=== PATIENT | female | born 1990 | race Two or more races ===

== ENCOUNTER 2024-11-20 08:09 | Day surgery (SDC) | payer BC, SELFPAY ==
[2024-11-20] VITALS (9 sets, daily range): BP systolic 93–131; BP diastolic 56–88; PULSE 63–91; RESP 12–18; TEMP 36.2–37.3; O2SAT 98–100; BMI 30.2
--- NOTE | 2024-11-20 08:24 | XR_ITS ---
Examination: OB Transvaginal ultrasound of the pelvis, complete Technique: Transvaginal sonographic images pelvis performed using wayne scale imaging Exam date and time: November 20, 2024 0835 hours INDICATIONS: Pelvic pain beginning 3 weeks ago FINDINGS: Uterus 10.3 cm, pole 0.3 cm correspondences 6 weeks 0 day gestational age No cardiac motion Right ovary 2.3 cm arterial flow 13 mm follicular cyst Left ovary 1.7 cm arterial flow IMPRESSION: Intrauterine gestation corresponding to 6 week 0 day gestational age No heart tones Recommend continued short-term follow-up to exclude demise.
--- NOTE | 2024-11-20 09:50 | EDNOTE_ITS ---
ED OB Contraction Preg RMI/HPI General Chief complaint: OB/Uterine Contractions Stated complaint: POSS MISCARRIAGE; SENT BY PCP Time Seen by Provider: 11/20/24 08:22 Arrival date/time: 11/20/24 08:09 34-year-old female presents to the Emergency Department for complaints of back pain concern for miscarriage patient reports being G3 A2. Patient reports no fever nausea or vomiting but does report pelvic pain and back pain. Patient more she was in the clinic yesterday and was instructed to come to the ER for f urther evaluation Limitations: no limitations Related Data Allergies Allergy/AdvReac Type Severity Reaction Status Date / Time No Known Allergies Allergy Verified 11/20/24 08:12 Review of Systems Review of Systems Systems Reviewed: All systems reviewed, normal except as documented Constitutional Constitutional: Reports system reviewed and no additional complaints, except as documented, Denies fever(s) and Denies headache(s) Eyes Eyes: Reports system reviewed and no additional complaints, except as documented and Denies blurry vision ENT Ears, Nose, Mouth, and Throat: Reports system reviewed and no additional complaints, except as documented, Denies headache(s), Denies nasal congestion and Denies nasal discharge Cardiovascular Cardiovascular: Reports system reviewed and no additional complaints, except as documented, Denies chest pain and Denies dyspnea Respiratory Respiratory: Reports system reviewed and no additional complaints, except as documented, Denies chest congestion, Denies cough and Denies dyspnea Gastrointestinal Gastrointestinal: Reports system reviewed and no additional complaints, except as documented and Denies abdominal pain Genitourinary Genitourinary: Reports system reviewed and no additional complaints, except as documented, Denies abnormal vaginal bleeding and Reports pelvic pain Integumentary/Breasts Skin/Breast: Reports system reviewed and no additional complaints, except as documented and Denies rash Neurologic Neurologic: Reports system reviewed and no additional complaints, except as documented, Reports as per HPI and Denies headache(s) Past Medical History Past Medical History NEUROLOGIC: Negative Seizures CARDIAC: Negative Congestive Heart Failure RESPIRATORY: Negative Chronic Obstructive Pulmonary Disease (COPD) GENITOURINARY: Negative Renal Disease ENDOCRINE: Negative Diabetes Mellitus Type 1 or Diabetes Mellitus Type 2 OTHER HISTORY: Negative Blood Transfusions or Anesthesia Reactions Social History SMOKING STATUS: Never smoker ED Exam General Limitations: Present no limitations General appearance: Present alert and in no apparent distress Head Head exam: Present atraumatic, normocephalic and normal inspection Eye Eye exam: Present normal appearance, PERRL and EOMI; Absent conjunctival injection ENT ENT exam: Present normal exam, normal oropharynx and mucous membranes moist Neck Neck exam: Present normal inspection, full ROM and trachea midline Chest Chest inspection: Present normal inspection and symmetric chest wall rise Respiratory Respiratory exam: Present normal lung sounds bilaterally; Absent respiratory distress Cardiovascular Cardiovascular exam: Present regular rate, normal rhythm and normal heart sounds Abdominal Exam Abdominal exam: Present soft and normal bowel sounds; Absent distention, tenderness, guarding, rebound or rigidity Extremities Exam Extremities exam: Present normal inspection and full ROM Back Exam Back exam: Present normal inspection and full ROM Neurological Exam Neurological exam: Present alert, oriented X3, CN II-XII intact, normal gait and reflexes normal; Absent motor sensory deficit Psychiatric Psychiatric exam: Present normal affect and normal mood Skin Skin exam: Present warm, dry, intact and normal color Course Quality Measures none Orders Category Date Time Status Patient Condition Routine Admission 11/20/24 09:44 Ordered SDC [Place in Surgical Day Care] Routine Admission 11/20/24 09:44 Active Activity as Tolerated Routine Care 11/20/24 09:44 Ordered COVID-19 Screening Questionnaire NOW Care 11/20/24 09:53 Active Clip Operative Site as Needed X1 Care 11/20/24 09:44 Active Decision to Admit X1 Care 11/20/24 09:40 Active Insert IV NOW Care 11/20/24 09:49 Active May take PO meds w/sips of H2O PRN Care 11/20/24 09:44 Active NPO NOW Care 11/20/24 09:44 Active Obtain Written Consent For: NOW Care 11/20/24 09:44 Active Sequential Compression Device NOW Care 11/20/24 09:44 Active Diet NPO (NOW) Diet 11/20/24 09:44 Active US OB transvaginal Stat Exams 11/20/24 08:24 Completed ABO/RH Type Stat Lab 11/20/24 10:12 Received Beta HCG,Quantitative Stat Lab 11/20/24 10:12 Results CBC Stat Lab 11/20/24 10:12 Completed Comprehensive Metabolic Panel Stat Lab 11/20/24 10:12 Results UA, C/S IF [Urinalysis, C/S if Indicated] Stat Lab 11/20/24 09:30 Completed Ringers Lactated 1000 ml [Lactated Ringers] 1,000 ml Med 11/20/24 09:45 Active IV 125 mls/hr Code Status Routine Oth 11/20/24 09:43 Ordered Vital Signs Vital signs: Vital Signs Temperature 99.1 F 11/20/24 08:17 Pulse Rate 91 11/20/24 08:17 Respiratory Rate 18 11/20/24 08:17 Blood Pressure 120/80 11/20/24 08:17 Pulse Oximetry (%) 99 11/20/24 08:17 Oxygen Delivery Method Room Air 11/20/24 08:17 O2 saturation 99% r.a. Within normal limits OB/Uterine Contractions MDM Narrative MDM Narrative:: 34-year-old female presents to the Emergency Department for complaints of back pain concern for miscarriage patient reports being G3 A2. Patient reports no fever nausea or vomiting but does report pelvic pain and back pain. Patient more she was in the clinic yesterday and was instructed to come to the ER for further evaluation On exam patient (patient does not appear ill or toxic in no acute distress Patient is hemodynamically stable Lab work and imaging obtained Consultation: Dr. Chang NUCLEAR MEDICINE OFFICER called me informing he will take the patient to surgery Patient data External records reviewed:: [facility] previous records Clinical information provided by:: patient Social determinants that could affect healthcare access:: none Patient has the following chronic illnesses:: See history How is presenting disease/condition affected by chronic disease/condition?: no chronic disease Evaluation data The following diagnostics were reviewed and interpreted by me:: lab results and radiology exam(s) Lab and/or radiology exams considered but not ordered:: Labs radiology obtained Interpretation Summary: Reviewed by me Medications / Prescriptions Medications or Prescriptions considered but not ordered:: No meds Medication administrations:: Medication Administration History Lactated Ringer's (Lactated Ringers) 1,000 mls @ 125 mls/hr IV .Q8H SERGIO Stop: 12/20/24 09:44 Last Admin: 11/20/24 10:50 Dose: 125 mls/hr Documented By: VL No meds Consultations Consultation(s) initiated? (list below): Yes Consultation #1 (Physician, Specialty, Details): Dr. chang Diagnosis OB Contractions Differential Diagnosis: other (Missed , threatened ) Most likely diagnosis given after review of the tests above:: Missed Admission Indicated Admission indicated?: not indicated Explain why admission is indicated or not indicated:: Indicated for D&C Admission Request Was there a request for admission?: No Disposition Plan Disposition Plan: Discharge Discharge Attestation Discharge Attestation: The patient and all family members were given an opportunity to ask questions and understood the discharge instructions. Discharge instructions specifically effects, indications for sooner follow up or return to the emergency department, and the expected course of current diagnosis. Patient condition: Stable Discharge Plan Plan Patient Disposition: Admit Acute Care w/in Hospital Discharge Disposition comment: Stable Problem List Clinical Impression: , missed PA/CERTIFIED PHYSICIAN'S ASSISTANT Supervising Physician PA/CERTIFIED PHYSICIAN'S ASSISTANT Supervising Physician: Dr. Johan HENRIQUEZ Attestation MD Attestation The patient was seen by the midlevel practitioner. I, the co-signing physician, was present during the entire ER visit. While I did not physically examine the patient, I was available for consultation as needed. I agree with the plan and documentation.
[2024-11-20 09:51] LABS: Collection Type, Urine Clean Catch
[2024-11-20 10:04] LABS: Amorphous Crystals,Urine Present (Absent); Bacteria,Urine 1+; Bilirubin,Urine Negative (Negative); Blood,Urine 1+ (Negative); Color,Urine Yellow (Lt Yel-Yel); Culture Indicated,Urine Contaminated; Glucose, Urine Negative (Negative); Ketones,Urine Negative (Negative); Leukocyte Esterase,Urine Positive (Negative); Nitrite,Urine Negative (Negative); PH,Urine 6.5 (5.0-7.0); Protein,Urine 1+ (Neg - Trace); RBC,Urine 16 /hpf (0-3); Specific Gravity,Urine 1.033 (1.001-1.035); Squamous Epithelial Cell,Urine 11 /hpf (0-5); Urobilinogen,Urine Negative mg/dL (0.0-1.0); WBC,Urine 5 /hpf (0-5)
[2024-11-20 10:17] LABS: Clarity,Urine Hazy (Clear/Hazy)
[2024-11-20 10:32] LABS: Basophils # (Auto) 0.1 Thou/mm3 (0.0-0.2); Basophils % (Auto) 1 % (0-2.5); Eosinophils # (Auto) 0.1 Thou/mm3 (0.0-0.5); Eosinophils % (Auto) 1 % (0-10); Hematocrit 40.3 % (36.0-46.0); Hemoglobin 13.7 g/dL (12.0-16.0); Immature Granulocytes Auto 0.02 Thou/mm3 (0.00-0.00); Lymphocytes # (Auto) 1.9 Thou/mm3 (1.0-4.8); Lymphocytes % (Auto) 24 % (10-50); Mean Corpuscular HGB Conc 34.0 g/dl (31.0-37.0); Mean Corpuscular Hemoglobin 30.5 pg (25.0-35.0); Mean Corpuscular Volume 90 fL (80-100); Monocytes # (Auto) 0.5 Thou/mm3 (0.0-0.8); Monocytes % (Auto) 6 % (0-12); Neutrophils # (Auto) 5.6 Thou/mm3 (1.8-7.7); Neutrophils % (Auto) 69 % (37-80); Nucleated Red Blood Cell # 0.00 Thou/mm3 (0.00-0.00); Nucleated Red Blood Cell % 0 /100 WBC (0); Platelet Count 324 Thou/mm3 (140-440); RDW Standard Deviation 43.8 fL (36.4-46.3); Red Blood Count 4.49 Miln/mm3 (4.00-5.20); White Blood Count 8.1 Thou/mm3 (3.6-11.0)
[2024-11-20] MEDS: RINGERS LACTATED 1000 ML 1,000 ML 125 ML IV (10:50)
[2024-11-20 10:53] LABS: Alanine Aminotransferase 39 U/L (10-49); Albumin, Serum 4.5 gm/dL (3.5-5.0); Albumin/Globulin Ratio 1.6 (1.2-2.2); Alkaline Phosphatase 69 U/L (46-116); Anion Gap 9 (7-16); Aspartate Amino Transferase 19 U/L (0-34); BUN/Creatinine Ratio 12 Ratio (12-20); Bilirubin,Total 0.4 mg/dL (0.3-1.2); Blood Urea Nitrogen 7 mg/dL (9-23); Calcium 9.1 mg/dL (8.3-10.6); Calcium (Corrected) 9.1 mg/dL (8.5-10.1); Carbon Dioxide 22.7 mMol/L (20.0-31.0); Chloride 106 mMol/L (98-107); Creatinine (Component) 0.6 mg/dL (0.6-1.3); Estimated Creatinine Clearance 136.3 mL/min (>60); Globulin 2.9 gm/dL (2.3-3.5); Glucose 86 mg/dL (74-106); Osmolality,Calculated 272 (275-295); Potassium 4.2 mMol/L (3.4-5.1); Sodium 138 mMol/L (136-145); Total Protein 7.4 gm/dL (5.7-8.2); eGFR > 60 See Note
[2024-11-20 11:25] LABS: Beta HCG,Quantitative 29998 mIU/mL (<5.0)
--- NOTE | 2024-11-20 13:20 | ESHP_ITS ---
Documentation for date of: 11/20/24 BOILER TUBE BLOWER - HPI History of Present Illness History of present illness: Ms. BROWN is a 34 year old female presents to the emergency room on referral from her CNM for a missed in early . She is currently experiencing a mild amount of uterine bleeding. The patient underwent a transvaginal ultrasound at her provider's office, which showed findings consistent with a missed . Today's ultrasound in the emergency room confirms these findings, revealing an intrauterine gestational sac corresponding to 6 weeks and 0 days gestation with no detectable heart tones. After being counseled on treatment options, including medical management and expectant management, Juanita has elected to proceed with suction D&C (dilation and curettage) for management of her missed . - Beta HCG quantitative (11-20-2024): 29,998 - Transvaginal ultrasound (11-20-2024): Intrauterine gestational sac corresponding to 6 weeks and 0 days, no heart tones Meds Home Medications and Allergies Allergies Allergy/AdvReac Type Severity Reaction Status Date / Time No Known Allergies Allergy Verified 11/20/24 08:12 Exam - BOILER TUBE BLOWER Vital Signs Temp Pulse Resp BP Pulse Ox O2 Del Method 98.2 F 67 18 111/64 100 Room Air 11/20/24 12:03 11/20/24 12:03 11/20/24 12:03 11/20/24 12:03 11/20/24 12:03 11/20/24 12:03 Constitutional Constitutional: no acute distress Routine HEENT Exam Head: Present normocephalic and atraumatic Eye: Present EOMI and PERRL ENT: Present mucous membranes moist Routine Neck Exam Neck: Present supple and trachea midline Routine Respiratory Exam Respiratory: Present chest non-tender, lungs clear, normal breath sounds and no resp distress Routine Cardiovascular Exam Cardiovascular: Present RRR Routine Abdominal Exam Abdominal: Present soft and normoactive bowel sounds Routine Extremities Exam Extremities: Present full ROM Routine Skin Exam Skin: Present intact and dry Routine Neurological Exam Neurological: Present alert, oriented X3 and CN II-XII intact Routine Psychiatric Exam Psychiatric: Present normal affect and normal thought process BOILER TUBE BLOWER - Results Labs 11/20/24 10:12 11/20/24 10:12 Labs: Short CBC 11/20/24 Range/Units 10:12 WBC 8.1 (3.6-11.0) Thou/mm3 Hgb 13.7 (12.0-16.0) g/dL Hct 40.3 (36.0-46.0) % Plt Count 324 (140-440) Thou/mm3 BMP 11/20/24 10:12 Sodium 138 Potassium 4.2 Chloride 106 Carbon Dioxide 22.7 BUN 7 L Creatinine 0.6 Glucose 86 Calcium 9.1 Liver Function 11/20/24 Range/Units 10:12 Total Bilirubin 0.4 (0.3-1.2) mg/dL AST 19 (0-34) U/L ALT 39 (10-49) U/L Alkaline Phosphatase 69 (46-116) U/L Albumin 4.5 (3.5-5.0) gm/dL Urine 11/20/24 Range/Units 09:30 Urine Color Yellow (Lt Yel-Yel) Urine Clarity Hazy (Clear/Hazy) Urine pH 6.5 (5.0-7.0) Ur Specific [place] 1.033 (1.001-1.035) Urine Protein 1+ A (Neg - Trace) Urine Glucose (UA) Negative (Negative) Assessment and Plan Assessment and plan (1) , missed: Status: Acute Assessment and plan: Missed Assessment: Patient presents with missed confirmed by transvaginal ultrasound showing intrauterine gestational sac corresponding to 6 weeks and 0 days with no heart tones. This finding was consistent with a previous ultrasound at her provider's office. Beta HCG quantitative test today is 29,998. Patient is experiencing mild uterine bleeding. Plan: - Counseled patient on treatment options including medical management, expectant management, and surgical intervention - Patient elected for suction D&C after consideration of all options - Provided detailed counseling about the risks of surgery, including: - Risks of suction D&C - Alternative treatments (medical management and expectant management) - Proceed with suction D&C as per patient's informed decision Quality Measures Quality Measures none
--- NOTE | 2024-11-20 14:46 | PD.GYNPROC ---
Operative Note - CERAMIC ENGINEER Procedure Date of procedure: 11/20/24 Procedure Performed: Suction dilatation and curettage Indication: Missed at 6 weeks Patient desiring surgical management Anesthesia type: General Procedure description: Informed consent was obtained and the patient was taken to the operating room. Identity was confirmed using two patient identifiers. The patient was positioned on the operating table, and general anesthesia was administered. She was then placed in the dorsal lithotomy position using Shyam stirrups. The perineum was prepped and draped in the usual sterile fashion. A straight catheter was used to empty the bladder. A weighted speculum was placed in the posterior vaginal fornix, and a right-angle retractor was used to retract the anterior vaginal wall. An atraumatic grasper was used to gently grasp the anterior lip of the cervix, which was placed under traction. Cervical length from the external to internal os was assessed, and a uterine sound was used to measure uterine depth. The cervix was noted to be dilated to approximately 8 mm. A 8 mm suction cannula was introduced through the cervical os, and multiple gentle passes were performed until evacuation of all tissue and blood clots was complete. Endometrial grating was palpated, and the uterus was noted to have contracted appropriately. The suction cannula was removed, and a gentle curettage was performed using a standard curette. All instruments were then withdrawn. Uterine bleeding was minimal. The atraumatic grasper was removed from the cervix, which was visualized and found to be hemostatic. The speculum was removed from the vaginal canal. The patient was then cleaned, undraped, and taken out of the lithotomy position. General anesthesia was reversed, and the patient was transferred to the recovery room in stable and awake condition. The procedure was well tolerated. All instrument, sponge, and lap counts were correct ?2. Estimated blood loss (ml): 50 Complications: none Surgical staff Operation Date: 11/20/24 14:15 <No data on this case meets the specified criteria> Diagnosis Discharge Diagnosis (1) , missed: Status: Acute Problem List Completed Was Problem List Reviewed/Reconciled?: Yes
--- NOTE | 2024-11-20 14:51 | SUR.PHASEI ---
1451: Pt. AAOx4, vitals stable, breathing unlabored, no complaint of pain or nausea, peripad in place, no active bleed noted, report received from MD Lee and Lencho BRAN.
--- NOTE | 2024-11-20 15:45 | SUR.PHASEII ---
1545: Pt. AAOx4, vitals stable, breathing unlabored, no complaint of pain or nausea, peripad in place CDI, no active bleed noted, pt. tolerated sips of water well, pt. ambulated to wheelchair with steady gait and no assist, no compliactions. Gave discharge instructions to the pt. and her ride, both verbalized understanding and had no further questions. Pt. left with all personal belongings.
== END 2024-11-20 15:45 | disposition home or self-care (01) ==
LOC: SERX 09:53 → S2EX 10:09
PROVIDERS: Nurse Practitioner Primary Care; Emergency Provider Family Medicine; PCP Family Medicine; Referring Provider Obstetrics & Gynecology; Visit Provider Obstetrics & Gynecology
PROC: (CPT 58120; principal; 2024-11-20 14:00)
DX: O02.1 Missed abortion (principal)
CPT/HCPCS: 59820; 36415; 76817; 80053; 81001; 84702; 85025; 86900; 86901; 99284; A4217; J0131; J1100; J2210; J2250; J2405; J2590; J2704; J3010; J3490; J7120

== ENCOUNTER 2024-12-05 08:23 | Outpatient (AMB) | payer BC, SELFPAY ==
[2024-12-05 08:44] VITALS: BP 126/83; PULSE 81; RESP 17; TEMP 36.4; O2SAT 97; BMI 30.2
--- NOTE | 2024-12-05 08:44 | AMB.GYNCLNOT ---
Vital Signs 12/05/24 08:44 Height 1.63 m Height Method Measured Weight 79.832 kg Weight Measurement Method Standing Scale BMI 30.2 BP 126/83 Blood Pressure Source Automatic Cuff Blood Pressure Location Right Upper Arm Position Sitting Respiration 17 Pulse 81 Pulse Source Monitor Temp 97.5 F Temp Source Temporal Artery Scan Pulse Oximetry (%) 97 Oxygen Delivery Method Room Air Allergies/Home Meds Allergies & Medications Allergies No Known Allergies Allergy (Verified 12/05/24 08:45) Medication Reconciliation No Known Home Medications 12/05/24 [History Confirmed 12/05/24] Intake Visit Data Collection New Patient or Established: Established Patient (seen at [facility] within 3 years) Reason for Visit:: D\C FOLLOW UP Consent obtained for Telemed Visit: No Seen by Clinical Staff ONLY (RN/MA): No Director Business Development Required: No Do You Feel Safe at Home: Yes Authorities Contacted: N/A PCP or OBGYN visit in last 3 months: Yes Date of Last PCP or OBGYN visit: 11/20/24 Hx Now: No Are you currently on any form of Control: No Last menstrual period: 09/09/24 Pain Present Currently: No Pain Scale Used: Duvall-Keller/Numerical Pain scale:: 0 Smoking Status Smoking Status: Never smoker Road Cleaner history Road Cleaner History Menstrual regularity: regular Flow: normal Monthly: Yes How many days does period last: 7 Age at menarche: 16 Menopausal: No Currently sexually active: Yes FURNITURE MOVER DRIVER: Past Medical History Past Medical History: No Hx Renal Disease, No Hx Diabetes Mellitus Type 1 and No Hx Diabetes Mellitus Type 2 Questionnaires Covid-19 Vaccine Questionnaire Has patient been vacinated for Covid-19 Have you been vacinated for Covid-19: Yes PHQ-9 PHQ-2 Over the last 2 weeks, how often have you been bothered by any of the following problems? 1. Little interest or pleasure in doing things: not at all 2. Feeling down, depressed, or hopeless: not at all Total score: 0 PHQ-9 3. Trouble falling or staying asleep, or sleeping too much: Not at all 4. Feeling tired or having little energy: Not at all 5. Poor appetite or overeating: Not at all 6. Feeling bad about yourself - or that you are a failure or have let yourself or your family down: Not at all 7. Trouble concentrating on things, such as reading the newspaper or watching television: Not at all 8. Moving or speaking so slowly that other people could have noticed? - Or the opposite - being so fidgety or restless that you have been moving around a lot more than usual: not at all 9. Thoughts that you would be better off or of hurting yourself in some way: Not at all Total score: 0 If you checked off any problems, how difficult have these problems made it for you to do your work, take care of things at home, or get along with other people?: not difficult at all Source: Developed by Drs. Tejas Ramos, Cecy Benitez, Greogr Holguin and colleagues, with an educational sandra from [employer]. Social History Living Situation History Marital Status: Lives With: Family Housing: Apartment Tobacco History Smoking Status: Never smoker Alcohol History Alcohol Intake: Current Alcohol Intake Frequency: A Few Times a Month Domestic Abuse History Do You Feel Safe at Home: Yes History of Present Illness HPI Narrative Juanita Nieves presents for a 2-week postoperative appointment following a suction D&C performed on November 20, 2024. 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 The patient underwent a suction D&C procedure two weeks ago due to a miscarriage. The pathology report from the procedure showed chorionic villi with degenerative changes, benign decidual tissue, necroinflammatory debris, and fibrin. No tissues were available for genetic testing. The patient has experienced at least two miscarriages, prompting consideration for further testing. She previously had a polyp removed, which was noted to have potentially interfered with . The patient also has a history of an ectopic resulting in a blocked fallopian tube on one side. Juanita is currently in the recovery phase post-procedure and has not reported any specific symptoms or complications. She is seeking guidance on future attempts and management of her recurrent miscarriages. The patient expresses interest in understanding the cause of her miscarriages and potential preventive measures for future pregnancies. The patient has been taking progesterone for treating luteal phase defect. She has an obstetric history of A3 L0. Her most recent ended in miscarriage, treated with suction D&C on November 20, 2024. She has had two previous miscarriages. - Pathology report (11-20-2024): Chorionic villi with degenerative change, benign decidual tissue, necroinflammatory debris, and fibrin - Genetic testing (11-20-2024): Not performed due to absence of tissues Exam General General Appearance: alert, in no apparent distress and healthy appearing Head Head exam: atraumatic Neck Neck exam: Present normal inspection and trachea midline Chest Chest inspection: Present normal inspection and symmetric chest wall rise External exam: Present normal external exam; Absent tenderness Neuro Neurological exam: Present oriented X3 Psych Psychiatric exam: Present normal affect and normal mood Office Procedures OB Clinic LOC & Office Proc's Nursing/Assessment Patient Status: Established Patient OB Clinic Nursing Assessment: Medication Reconciliation, Update PMH in EMR and Vital Signs OB Clinic Coordination of Care: Complex Care and Chronic Disease 1-5, Consent,records obtained, informed consent, Education Simp Pt/Fam and Lab and Imaging orders Established Patient Charge Established Patient Point Assignment: 90 Established Patient Point Charge: EP Level 3 (80-115) Assessment & Plan Diagnosis / Problem List (1) , missed: Status: Acute (2) Recurrent loss: Status: Acute Plan Recent Miscarriage and Suction D&C: - Patient underwent suction D&C on November 20, 2024, for management of miscarriage. - Pathology report shows chorionic villi with degenerative change, benign decidual tissue, necroinflammatory debris, and fibrin. - No tissues available for genetic testing. - Miscarriage attributed to errors in natural process of fertilization and implantation. Plan: - Advise patient can attempt conception when next menstrual cycle returns. - Recommend waiting 6 months before trying to conceive again if patient decides to take a break. - Use barrier methods for contraception until further testing is complete. Recurrent Loss: - Patient has experienced two or more miscarriages warranting further evaluation. - Differential diagnoses include antiphospholipid syndrome and luteal phase defect. - Autoimmune etiology suspected. Plan: - Order lupus panel to be performed on January 03, 2025: ? Fast before test and avoid large protein meals the day before - If lupus test is positive, implement specific protocols and treatments. - Consider progesterone supplementation if luteal phase defect is diagnosed. History of Ectopic and Tubal Patency Concerns: - History of ectopic resulting in unilateral tubal blockage. - Contralateral fallopian tube presumed functional. Plan: - Defer HSG at this time. - Offer laparoscopic dye test as alternative if patient remains concerned about tubal patency. History of Uterine Polyp: - Previous uterine polyp removal expected to improve fertility outcomes. Plan: - No specific interventions required at this time. - Continue to monitor for recurrence of polyps in future evaluations.
== END 2024-12-05 09:01 | disposition home or self-care (01) ==
LOC: HODSOBC 08:23
PROVIDERS: Supervising Provider Obstetrics & Gynecology; Visit Provider Obstetrics & Gynecology
DX: O02.1 Missed abortion (principal)
CPT/HCPCS: 99213; G0463

== ENCOUNTER 2025-01-09 08:19 | Outpatient (AMB) | payer BC, SELFPAY ==
[2025-01-09 08:28] VITALS: BP 125/84; PULSE 84; RESP 16; TEMP 36.6; O2SAT 98; BMI 29.9
--- NOTE | 2025-01-09 08:28 | GYNCLNT_ITS ---
Vital Signs 01/09/25 08:28 Height 1.63 m Height Method Stated Weight 79.435 kg Weight Measurement Method Standing Scale BMI 29.9 BP 125/84 Blood Pressure Source Automatic Cuff Blood Pressure Location Left Upper Arm Position Sitting Respiration 16 Pulse 84 Pulse Source Monitor Temp 97.8 F Temp Source Oral Pulse Oximetry (%) 98 Oxygen Delivery Method Room Air Allergies/Home Meds Allergies & Medications Allergies No Known Allergies Allergy (Verified 01/09/25 08:29) Medication Reconciliation No Known Home Medications 12/05/24 [History Confirmed 01/09/25] Intake Visit Data Collection New Patient or Established: Established Patient (seen at [facility] within 3 years) Reason for Visit:: HCG LEVELS Seen by Clinical Staff ONLY (RN/MA): No Computer Tape Librarian Required: No Do You Feel Safe at Home: Yes Authorities Contacted: N/A PCP or OBGYN visit in last 3 months: Yes Hx Now: Yes Are you currently on any form of Control: No Pain Present Currently: No Pain Scale Used: Duvall-Keller/Numerical Pain scale:: 0 Smoking Status Smoking Status: Never smoker 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 1. Little interest or pleasure in doing things: not at all 2. Feeling down, depressed, or hopeless: not at all Total score: 0 PHQ-9 3. Trouble falling or staying asleep, or sleeping too much: Not at all 4. Feeling tired or having little energy: Not at all 5. Poor appetite or overeating: Not at all 6. Feeling bad about yourself - or that you are a failure or have let yourself or your family down: Not at all 7. Trouble concentrating on things, such as reading the newspaper or watching television: Not at all 8. Moving or speaking so slowly that other people could have noticed? - Or the opposite - being so fidgety or restless that you have been moving around a lot more than usual: not at all 9. Thoughts that you would be better off or of hurting yourself in some way: Not at all Total score: 0 Source: Developed by Drs. Tejas Ramos, Cecy Benitez, Gregor Holguin and colleagues, with an educational sandra from [employer]. Depression screen completed yes Social History Living Situation History Lives With: Family Housing: Apartment Tobacco History Smoking Status: Never smoker Second Hand Smoke Exposure: No Alcohol History Alcohol Intake: Current Alcohol Intake Frequency: A Few Times a Month Domestic Abuse History Do You Feel Safe at Home: Yes History of Present Illness HPI Narrative Juanita Nieves presents with ongoing vaginal bleeding over the past month, describing a lot of old blood discharge since her last visit. She reports an irregular bleeding pattern where her bleeding had stopped, then restarted on December 27 for 3 days, stopped again, and then resumed this week. She does not believe this represents her normal menstrual period given the irregular timing and pattern. She has a history concerning for lupus. ROS: Genitourinary: Positive for old blood discharge and irregular bleeding pattern. Exam General General Appearance: alert, in no apparent distress and healthy appearing Head Head exam: atraumatic Neck Neck exam: Present normal inspection and trachea midline Chest Chest inspection: Present normal inspection and symmetric chest wall rise External exam: Present normal external exam; Absent tenderness Neuro Neurological exam: Present oriented X3 Psych Psychiatric exam: Present normal affect and normal mood Office Procedures [facility] LOC & Office Proc's Nursing/Assessment Patient Status: Established Patient OB Clinic Nursing Assessment: Medication Reconciliation, Update PMH in EMR and Vital Signs OB Clinic Coordination of Care: Complex Care and Chronic Disease 1-5, Consen t,records obtained, informed consent, Education Simp Pt/Fam, 1 Ins Authorization, Lab and Imaging orders, Results/Orders obtained and Staff clarify orders Established Patient Charge Established Patient Point Assignment: 120 Established Patient Point Charge: EP Level 4 (120-155) Assessment & Plan Diagnosis / Problem List (1) Recurrent loss: Status: Acute (2) , missed: Status: Acute Plan Possible Lupus: - Patient undergoing evaluation for lupus with laboratory testing. - Basic lupus panel returned negative, but detailed testing is still pending. - Diagnosis requires any two positive criteria from the comprehensive panel to establish lupus diagnosis. Plan: - Await detailed lupus laboratory results (7-10 days from last week). - Telephone appointment scheduled for Tuesday to discuss laboratory results and determine next steps. - Treatment direction will depend on final laboratory results. Bleeding: - Patient reports ongoing old blood discharge, which is normal up to 6 weeks . - Experienced bleeding that stopped and restarted on December 27 for 3 days, then recurred this week. - Pattern suggests abnormal bleeding as patient would not have ovulated, possibly representing a short abnormal period rather than normal menstruation. Plan: - Continue observation as bleeding up to 6 weeks is normal. - If bleeding persists beyond 6 weeks, medications will be provided. - Expect normal cycles to resume approximately one month from current timeframe.
== END 2025-01-09 09:11 | disposition home or self-care (01) ==
LOC: HODSOBC 08:19
PROVIDERS: Supervising Provider Obstetrics & Gynecology; Visit Provider Obstetrics & Gynecology
DX: O02.1 Missed abortion (principal)
CPT/HCPCS: 99214; G0463